=== PATIENT | female | born 1955 | race Caucasian/White ===

== ENCOUNTER → 2022-06-19 11:10 | Outpatient (CLI) | payer MEDICARE, OTHER, SELFPAY ==
--- NOTE | 2022-06-19 11:17 | XR_ITS ---
FINAL REPORT CLINICAL HISTORY: foot pain best images possible FINDINGS: RIGHT FOOT Three views of the right foot were obtained. The bones are osteopenic. There is mild hallux valgus deformity. There is pencil and cup deformities of the 2nd through 5th metatarsal-phalangeal joints. IMPRESSION: Advanced changes of inflammatory arthritis, favor psoriatic or rheumatoid. Lupus is a less likely consideration. Secondary osteoarthritis. Reviewed, Interpreted and Dictated by Chandana Alarcon MD Transcribed by Janessa Perez Authenticated and . [facility]
--- NOTE | 2022-06-19 11:17 | XR_ITS ---
FINAL REPORT CLINICAL HISTORY: shortness of air FINDINGS: TWO-VIEW CHEST The heart size is normal. The mediastinum is normal. The lungs are clear. There is no pneumothorax. IMPRESSION: No acute cardiopulmonary process. Reviewed, Interpreted and Dictated by Chandana Alarcon MD Transcribed by Sophie Bunch Authenticated and [facility]
--- NOTE | 2022-06-19 11:17 | XR_ITS ---
FINAL REPORT CLINICAL HISTORY: deformities best images possible FINDINGS: LEFT HAND Three views of the left hand were obtained. There is pencil and cup deformity at the 2nd through 5th MCP joints. There is erosion and fragmentation of the carpal bones in the proximal carpal row. There is erosion and lucency along the distal radius. There are moderate erosive changes at the 3rd DIP joint. IMPRESSION: Advanced changes of inflammatory arthritis, favor psoriatic or rheumatoid. Lupus is a less likely consideration. Secondary osteoarthritis. Reviewed, Interpreted and Dictated by Chandana Alarcon MD Transcribed by Janessa Perez Authenticated and . [facility]
--- NOTE | 2022-06-19 11:17 | XR_ITS ---
FINAL REPORT CLINICAL HISTORY: foot pain best images possible FINDINGS: LEFT FOOT Three views of the left foot were obtained. The bones are osteopenic. There is mild hallux valgus deformity. There is pencil and cup deformities of the 2nd through 5th metatarsal-phalangeal joints. IMPRESSION: Advanced changes of inflammatory arthritis, favor psoriatic or rheumatoid. Lupus is a less likely consideration. Secondary osteoarthritis. Reviewed, Interpreted and Dictated by Chandana Alarcon MD Transcribed by Janessa Perez Authenticated and [facility]
--- NOTE | 2022-06-19 11:34 | XR_ITS ---
FINAL REPORT CLINICAL HISTORY: right hand pain best images possible FINDINGS: RIGHT HAND Three views of the right hand were obtained. There is pencil and cup deformity at the 2nd through 5th MCP joints. There is erosion and fragmentation of the carpal bones in the proximal carpal row. There are erosive changes of the 2nd through 5th MCP and PIP joints. There is erosion and lucency along the distal radius. There are moderate erosive changes at the 3rd DIP joint. There is abnormal widening of the scapholunate joint space measuring about 5 mm which is concerning for an underlying scapholunate ligament disruption. IMPRESSION: Advanced changes of inflammatory arthritis, favor psoriatic or rheumatoid. Lupus is a less likely consideration. Secondary osteoarthritis. Widening of the scapholunate joint space concerning for a scapholunate ligament tear. Reviewed, Interpreted and Dictated by Chandana Alarcon MD Transcribed by Janessa Perez Authenticated and [facility]
[2022-06-19 12:27] LABS: MANUAL DIFFERENTIAL MANUAL DIFFERENTIAL (MANUAL DIFF)
[2022-06-19 14:48] LABS: Basophils # 0.1 K/mm3 (0-0.2); Basophils % 0.9 % (0.1-2.0); Eosinophils # 0.1 K/mm3 (0.0-0.4); Eosinophils % 0.7 % (0.1-12.0); Hematocrit 42.3 % (37.0-47.0); Hemoglobin 13.6 g/dL (12.2-16.2); Lymphocytes # 2.4 K/mm3 (0.7-4.5); Lymphocytes % 25.8 % (10-50); Mean Corpuscular HGB Conc 32.2 g/dL (31.8-35.4); Mean Corpuscular Hemoglobin 28.1 pg (27.0-31.2); Mean Corpuscular Volume 87.4 fl (81-99); Mean Platelet Volume 9.3 fl (7.4-10.4); Monocytes # 0.5 K/mm3 (0.1-1.0); Monocytes % 5.2 % (1.7-9.3); Neutrophils # 6.4 K/mm3 (1.8-7.8); Neutrophils % 67.4 % (37.0-80.0); Platelet Count 418 K/mm3 (142-424); Red Blood Count 4.84 M/mm3 (4.20-5.40); Red Cell Distribution Width 14.3 % (11.5-17.5); White Blood Count 9.5 K/mm3 (4.8-10.8)
[2022-06-19 16:54] LABS: Alanine Aminotransferase 17 U/L (12-78); Albumin Level 4.1 g/dl (3.5-5.0); Albumin/Globulin Ratio 1.4 (1.1-1.8); Alkaline Phosphatase 96 U/L (38-126); Anion Gap 10.4 mEq/L (5-15); Aspartate Amino Transferase 21 U/L (14-36); Bilirubin,Total 0.5 mg/dl (0.2-1.3); Blood Urea Nitrogen 13 mg/dl (7-17); Calcium 9.1 mg/dl (8.4-10.2); Carbon Dioxide 25 mmol/L (22.0-30.0); Chloride 107 mmol/L (98-107); Chol/HDL Ratio 2.7 (1-3.5); Cholesterol 180 mg/dl (140-200); Creatine Kinase 23 U/L (30-135); Estimated Glomerular Filt Rate 100 ml/min (>60); GFR (African American) 121 ML/MIN (>60); Glucose 97 mg/dl (74-100); HDL Cholesterol 66 mg/dl (40-60); Lactate Dehydrogenase 175 U/L (313-618); Magnesium 2.1 mg/dl (1.6-2.3); Potassium 4.4 mmoL/L (3.5-5.1); Sodium 138 mmol/L (136-145); Total Protein,Serum 7.1 g/dl (6.3-8.2); Triglycerides 108 mg/dl (30-150); Uric Acid 4.1 mg/dl (2.5-6.2); VLDL Cholesterol 22 mg/dL (0-40)
[2022-06-19 17:12] LABS: 25-OH Vitamin D, Total 53.4 ng/mL (30-100)
[2022-06-19 17:32] LABS: C-Reactive Protein 33.6 mg/L (0-4); Direct LDL Cholesterol 83.92 mg/dL (100-129); Total Iron Binding Capacity 350 ug/dL (265-497)
[2022-06-19 18:03] LABS: Vitamin B12 702 pg/mL (239-931)
[2022-06-19 18:05] LABS: Folate > 20.00 ng/mL
[2022-06-19 18:26] LABS: Erythrocyte Sedimentation Rate 55 mm/hr (0-30)
[2022-06-19 18:45] LABS: Hemoglobin A1C 5.1 % (4.0-6.0)
[2022-06-19 19:25] LABS: Lymphocytes % 13 % (10-50); Monocytes % 4 % (2-9); Neutrophils % 81 % (42-76); Platelet Estimate Normal; RBC Morphology Normal; Total Cells Counted 100
[2022-06-19 21:42] LABS: Iron 34 ug/dL (37-170)
[2022-06-19 23:23] LABS: Ferritin 11.9 ng/ml (11.1-264)
[2022-06-21 09:28] LABS: RA Latex Turbid. 351.8 IU/mL (<14.0)
[2022-06-25 09:14] LABS: Antinuclear Antibodies, IFA Negative (.)
[2022-06-25 21:22] LABS: Vitamin E Gamma Tocopherol 1.9 mg/L (0.5-4.9)
== END | disposition home or self-care (01) ==
PROVIDERS: PCP Physician Assistant; Visit Provider Physician Assistant
DX: R06.00 Dyspnea, unspecified (principal); M79.641 Pain in right hand; M89.8X9 Other specified disorders of bone, unspecified site; R53.1 Weakness; R53.83 Other fatigue; M25.50 Pain in unspecified joint; E78.5 Hyperlipidemia, unspecified; E55.9 Vitamin D deficiency, unspecified; R73.9 Hyperglycemia, unspecified; M21.942 Unspecified acquired deformity of hand, left hand; M21.941 Unspecified acquired deformity of hand, right hand; M79.671 Pain in right foot; M79.642 Pain in left hand; M79.672 Pain in left foot
CPT/HCPCS: 36415; 71046; 73130; 73630; 80053; 80061; 82306; 82550; 82607; 82728; 82746; 82787; 83036; 83540; 83550; 83615; 83735; 84446; 84550; 85007; 85014; 85018; 85048; 85049; 85651; 86038; 86140; 86431

== ENCOUNTER → 2023-02-24 23:52 | Outpatient (CLI) | payer MEDICARE, OTHER, SELFPAY ==
[2023-02-24 18:21] LABS: Alanine Aminotransferase 26 U/L (12-78); Albumin Level 4.1 g/dl (3.5-5.0); Albumin/Globulin Ratio 1.3 (1.1-1.8); Alkaline Phosphatase 86 U/L (38-126); Anion Gap 13.6 mEq/L (5-15); Aspartate Amino Transferase 30 U/L (14-36); Bilirubin,Total 0.4 mg/dl (0.2-1.3); Blood Urea Nitrogen 18 mg/dl (7-17); Calcium 9.7 mg/dl (8.4-10.2); Carbon Dioxide 24 mmol/L (22.0-30.0); Chloride 101 mmol/L (98-107); Estimated Glomerular Filt Rate 100 ml/min (>60); GFR (African American) 121 ML/MIN (>60); Globulin 3.1 g/dL (1.3-3.2); Glucose 93 mg/dl (74-100); Magnesium 1.9 mg/dl (1.6-2.3); Potassium 4.6 mmoL/L (3.5-5.1); Sodium 134 mmol/L (136-145); Total Protein,Serum 7.2 g/dl (6.3-8.2)
[2023-02-24 18:28] LABS: C-Reactive Protein 6.2 mg/L (0-4)
[2023-02-24 18:40] LABS: Basophils # 0.1 K/mm3 (0-0.2); Basophils % 0.4 % (0.1-2.0); Eosinophils # 0.2 K/mm3 (0.0-0.4); Eosinophils % 1.7 % (0.1-12.0); Hematocrit 41.6 % (37.0-47.0); Hemoglobin 14.5 g/dL (12.2-16.2); Lymphocytes # 2.2 K/mm3 (0.7-4.5); Mean Corpuscular HGB Conc 34.8 g/dL (31.8-35.4); Mean Corpuscular Hemoglobin 32.8 pg (27.0-31.2); Mean Corpuscular Volume 94.3 fl (81-99); Mean Platelet Volume 10.4 fl (7.4-10.4); Monocytes # 0.6 K/mm3 (0.1-1.0); Monocytes % 5.3 % (1.7-9.3); Neutrophils # 8.1 K/mm3 (1.8-7.8); Neutrophils % 72.5 % (37.0-80.0); Platelet Count 377 K/mm3 (142-424); Red Blood Count 4.41 M/mm3 (4.20-5.40); Red Cell Distribution Width 13.8 % (11.5-17.5); White Blood Count 11.2 K/mm3 (4.8-10.8)
[2023-02-24 18:43] LABS: 25-OH Vitamin D, Total 68.2 ng/mL (30-100)
[2023-02-24 19:06] LABS: Erythrocyte Sedimentation Rate 21 mm/hr (0-30)
[2023-02-24 19:12] LABS: Vitamin B12 903 pg/mL (239-931)
[2023-02-24 19:27] LABS: Iron 69 ug/dL (37-170)
[2023-02-24 19:56] LABS: Total Iron Binding Capacity 316 ug/dL (265-497)
[2023-02-24 20:04] LABS: Ferritin 29.5 ng/ml (11.1-264)
== END ==
PROVIDERS: PCP Physician Assistant; Visit Provider Physician Assistant
DX: M06.9 Rheumatoid arthritis, unspecified (principal); Z68.23 Body mass index [BMI] 23.0-23.9, adult; M25.50 Pain in unspecified joint; Z79.899 Other long term (current) drug therapy
CPT/HCPCS: 80053; 82306; 82607; 82728; 83540; 83550; 83735; 85025; 85651; 86140